=== PATIENT | female | born 1995 | race Caucasian/White ===

== ENCOUNTER 2018-11-11 10:24 | Inpatient (IN) | payer MEDICAID ==
[2018-11-11] MEDS ORDERED: LIDOCAINE 1% (MPF) 30 ML INJ INJ (11:00)
[2018-11-11] MEDS ORDERED: BUTORPHANOL 2 MG INJ IV (11:00)
[2018-11-11] MEDS ORDERED: CARBOPROST 250 MCG INJ IM (11:00)
[2018-11-11] MEDS ORDERED: MISOPROSTOL 50 MCG CAPSULE PO (11:00)
[2018-11-11] MEDS ORDERED: IBUPROFEN 600 MG TAB PO (11:00)
[2018-11-11] MEDS ORDERED: MISOPROSTOL 200 MCG TAB PR (11:00)
[2018-11-11] MEDS ORDERED: OXYTOCIN 30 UNITS/LR 500 ML IV ×2 (11:00)
[2018-11-11] MEDS: LACTATED RINGER'S 1,000 ML IV ×3 (11:44→21:29)
[2018-11-11] MEDS: OXYTOCIN 30 UNITS/LR 500 ML IV (12:10)
[2018-11-11] MEDS ORDERED: FENTAnyl 2MCG/ML-ROPIV 0.2% 100 ML (22:02)
[2018-11-11] MEDS ORDERED: FENTAnyl 2MCG/ML-ROPIV 0.2% 100 ML BAG EPI (22:30)
[2018-11-11] MEDS ORDERED: NALOXONE (0.4 MG/ML) INJ IV (22:30)
[2018-11-11] MEDS ORDERED: DIPHENHYDRAMINE 50 MG INJ IV (22:30)
[2018-11-11] MEDS: ONDANSETRON 4 MG INJ IV (22:31)
[2018-11-11] MEDS: MINERAL OIL LIGHT 10 ML VIAL TOP (23:48)
[2018-11-11] MEDS: METHYLERGONOVINE 0.2 MG INJ IM (23:48)
[2018-11-12] MEDS: OXYTOCIN 30 UNITS/LR 500 ML IV ×2 (00:02→00:03)
[2018-11-12] MEDS ORDERED: MISOPROSTOL 200 MCG TAB PR (00:30)
[2018-11-12] MEDS ORDERED: NACL 0.9% 3 ML SYG IV (00:30)
[2018-11-12] MEDS ORDERED: ONDANSETRON 4 MG INJ IV (00:30)
[2018-11-12] MEDS ORDERED: CARBOPROST 250 MCG INJ IM (00:30)
[2018-11-12] MEDS ORDERED: METHYLERGONOVINE 0.2 MG INJ IM (00:30)
[2018-11-12] MEDS ORDERED: OXYTOCIN 30 UNITS/LR 500 ML IV (00:30)
[2018-11-12] MEDS ORDERED: ACETAMINOPHEN 325 MG TAB PO (00:30)
[2018-11-12] MEDS ORDERED: OXYCODONE/ASPIRIN (4.88/325) TAB PO ×2 (00:30)
[2018-11-12] MEDS: IBUPROFEN 600 MG TAB PO ×3 (06:59→17:16)
[2018-11-12] MEDS: WITCH HAZEL/GLYCERIN PAD PR (06:59)
[2018-11-12] MEDS: LANOLIN HPA 1 PKT TOP (07:00)
[2018-11-12] MEDS: BENZOCAINE 20% 56 ML SPRAY TOP (07:00)
[2018-11-13] MEDS: IBUPROFEN 600 MG TAB PO ×3 (00:18→11:49)
[2018-11-13] MEDS: BENZOCAINE 20% 56 ML SPRAY TOP (00:54)
[2018-11-13] MEDS: LANOLIN HPA 1 PKT TOP (00:55)
[2018-11-13] MEDS: WITCH HAZEL/GLYCERIN PAD PR (00:55)
== END 2018-11-13 13:50 | disposition home or self-care (01) | DRG 806 ==
LOC: L-D 10:24 → PP1 11-12 01:37
PROC: 10E0XZZ Delivery of Products of Conception, External Approach (ICD-10-PCS; principal; 2018-11-12)
PROC: 0KQM0ZZ Repair Perineum Muscle, Open Approach (ICD-10-PCS; 2018-11-12)
PROC: 3E033VJ Introduction of Other Hormone into Peripheral Vein, Percutaneous Approach (ICD-10-PCS; 2018-11-12)
DX: O48.0 Post-term pregnancy (principal); O71.4 Obstetric high vaginal laceration alone; Z37.0 Single live birth; Z3A.41 41 weeks gestation of pregnancy
CPT/HCPCS: 62322; 76815; 85025; 85610; 85730; 86592; 86850; 86900; 86901; 87340; 99464